=== PATIENT | female | born 1965 | race Hispanic/Latino ===

== ENCOUNTER → 2017-10-28 | Outpatient (CLI) | payer BC | END | disposition home or self-care (01) | LOC: RAH 13:35 | PROVIDERS: ATTEND Obstetrics & Gynecology | DX: Z12.31 Encounter for screening mammogram for malignant neoplasm of breast (principal) | CPT/HCPCS: 77067 ==

== ENCOUNTER 2017-12-24 07:13 | Inpatient (IN) | payer BC ==
[~2017-12-24] VITALS: Ht 160 cm; Wt 108.9 kg
[2017-12-24] MEDS ORDERED: ONDANSETRON HCL MDV 20ML 2 MG/ML VIAL ONE (07:54)
[2017-12-24] MEDS ORDERED: SODIUM CHLORIDE 0.9% 1000ML 1,000 ML IV ONE (07:54)
[2017-12-24] MEDS ORDERED: MORPHINE SULFATE 4 MG/1ML SYG ONE ×2 (07:54→09:54)
[2017-12-24 08:01] LABS: BASOPHILS % (AUTO) 0.4 % (0.0-5.0); EOSINOPHILS % (AUTO) 0.9 % (0.0-8.0); LYMPHOCYTES % (AUTO) 14.9 % (21.0-51.0); MEAN CORPUSCULAR HEMOGLOBIN 32.6 pg (27.0-33.0); MEAN CORPUSCULAR HGB CONC 35.3 g/dL (32.0-36.0); MEAN CORPUSCULAR VOLUME 92.4 fL (79-99); MONOCYTES % (AUTO) 5.4 % (3.0-13.0); NEUTROPHILS % (AUTO) 78.4 % (40.0-77.0); PLATELET COUNT (AUTO) 229 K/uL (130-400); RED BLOOD CELL COUNT(AUTO) 4.22 MIL/uL (4.00-5.50); RED CELL DISTRIBUTION WIDTH 13.2 % (11.0-15.5); WHITE BLOOD COUNT (AUTO) 8.9 K/uL (4.8-10.8)
[2017-12-24 08:10] LABS: CREATININE 0.7 mg/dL (0.5-1.5); POTASSIUM 4.2 mmol/L (3.5-5.1)
[2017-12-24 08:16] LABS: ALBUMIN 3.5 g/dL (3.5-5.0); BILIRUBIN,TOTAL 0.4 mg/dL (0.2-1.0); TOTAL PROTEIN, SERUM 7.3 g/dL (6.0-8.3)
[2017-12-24] MEDS ORDERED: KETOROLAC TROMETHAMINE 30MG/ML ONE (08:38)
[2017-12-24 10:03] LABS: APPEARANCE,URINE CLOUDY (CLEAR); BILIRUBIN,URINE NEGATIVE (NEGATIVE); COLOR,URINE YELLOW (YELLOW); GLUCOSE, URINE (UA) NEGATIVE (NEGATIVE); KETONES,URINE NEGATIVE (NEGATIVE); LEUKOCYTE ESTERASE ,URINE NEGATIVE (NEGATIVE); NITRATE,URINE NEGATIVE (NEGATIVE); OCCULT BLOOD,URINE NEGATIVE (NEGATIVE); PROTEIN,URINE NEGATIVE (NEGATIVE); UROBILINOGEN,URINE 0.2 mg/dL (0.2-1.0)
[2017-12-24 11:07] LABS: AMORPHOUS SEDIMENT,UR Many /LPF (None Seen); BACTERIA,URINE Few /HPF (None Seen); RBC,URINE 0-1 /HPF (0-1); SQUAMOUS EPITHELIAL CELL,UR Rare /LPF (0-2); WBC,URINE None Seen /HPF (0-1)
[2017-12-24] MEDS ORDERED: MEROPENEM 1 GM VIAL ONE ×2 (11:52→19:39)
[2017-12-24 12:19] VITALS: BP 154/77
[2017-12-24] MEDS: 1/2 NORMAL SALINE 1,000 ML IV SCH ×2 (14:23→20:23)
[2017-12-24] MEDS: HYDROMORPHONE HCL 0.5 MG/0.5 ML ML IVP PRN ×2 (14:24→18:17)
[2017-12-24] MEDS ORDERED: MEROPENEM 1 GM VIAL IVP SCH (15:00)
[2017-12-24 16:04] VITALS: BP 119/61
[2017-12-24] MEDS: ONDANSETRON HCL MDV 20ML 2 MG/ML VIAL IVP PRN (18:17)
[2017-12-24 19:39] VITALS: BP 136/71
[2017-12-24] MEDS: MEROPENEM 1 GM VIAL IVP SCH (20:21)
[2017-12-24 23:40] VITALS: BP 119/59
[2017-12-25] MEDS: MEROPENEM 1 GM VIAL IVP SCH ×3 (04:19→21:10)
[2017-12-25] MEDS: 1/2 NORMAL SALINE 1,000 ML IV SCH ×3 (04:20→21:11)
[2017-12-25 04:25] VITALS: BP 115/58
[2017-12-25 05:17] LABS: BASOPHILS % (AUTO) 0.4 % (0.0-5.0); EOSINOPHILS % (AUTO) 0.9 % (0.0-8.0); LYMPHOCYTES % (AUTO) 22.3 % (21.0-51.0); MEAN CORPUSCULAR HEMOGLOBIN 32.3 pg (27.0-33.0); MEAN CORPUSCULAR HGB CONC 34.6 g/dL (32.0-36.0); MEAN CORPUSCULAR VOLUME 93.4 fL (79-99); MONOCYTES % (AUTO) 7.8 % (3.0-13.0); NEUTROPHILS % (AUTO) 68.6 % (40.0-77.0); PLATELET COUNT (AUTO) 222 K/uL (130-400); RED BLOOD CELL COUNT(AUTO) 3.75 MIL/uL (4.00-5.50); RED CELL DISTRIBUTION WIDTH 12.9 % (11.0-15.5); WHITE BLOOD COUNT (AUTO) 9.3 K/uL (4.8-10.8)
[2017-12-25 05:29] LABS: ALBUMIN 2.7 g/dL (3.5-5.0); BILIRUBIN,TOTAL 0.5 mg/dL (0.2-1.0); CREATININE 0.8 mg/dL (0.5-1.5); POTASSIUM 3.3 mmol/L (3.5-5.1); TOTAL PROTEIN, SERUM 5.9 g/dL (6.0-8.3)
[2017-12-25] MEDS ORDERED: POTASSIUM CHLORIDE 20MEQ/100ML 100 ML IV PRN (07:00)
[2017-12-25] MEDS ORDERED: POTASSIUM CHLORIDE 10% ELIXIR 20 MEQ/15 ML UDCUP PO PRN (07:00)
[2017-12-25] MEDS ORDERED: LIDOCAINE HCL-MPF 1% 2ML VIAL IVP PRN (07:00)
[2017-12-25] MEDS: PANTOPRAZOLE SODIUM 40 MG TABLET.DR PO SCH (09:17)
[2017-12-25] MEDS: ACETAMINOPHEN 325 MG TAB PO PRN ×2 (09:17→21:27)
[2017-12-25] MEDS: POTASSIUM CHLORIDE 20 MEQ ERTAB PO PRN ×3 (09:18→16:45)
[2017-12-25 11:43] VITALS: BP 121/57
[2017-12-25 16:04] VITALS: BP 137/70
[2017-12-25 19:45] VITALS: BP 139/69
[2017-12-25 23:45] VITALS: BP 146/79
[2017-12-26] VITALS (25 sets, daily range): BP systolic 116–149; BP diastolic 55–83
[2017-12-26] MEDS: MEROPENEM 1 GM VIAL IVP SCH ×3 (04:32→20:49)
[2017-12-26] MEDS: ACETAMINOPHEN 325 MG TAB PO PRN (04:32)
[2017-12-26] MEDS: 1/2 NORMAL SALINE 1,000 ML IV SCH ×3 (04:32→22:30)
[2017-12-26] MEDS: PANTOPRAZOLE SODIUM 40 MG TABLET.DR PO SCH (09:00)
[2017-12-26] MEDS ORDERED: LIDOCAINE HCL/EPINEPHRINE 50 ML VIAL IJ ONE (09:47)
[2017-12-26] MEDS ORDERED: BUPIVACAINE/PF 0.25% 30ML VIAL IJ ONE (09:47)
[2017-12-26] MEDS ORDERED: DEXAMETHASONE SOD PHOSPHATE 10MG/ML 1ML VIAL ONE (10:02)
[2017-12-26] MEDS ORDERED: GLYCOPYRROLATE 0.2 MG/ML 5 ML VIAL ONE (10:02)
[2017-12-26] MEDS ORDERED: MIDAZOLAM HCL 1 MG/ML 2ML VIAL ONE (10:02)
[2017-12-26] MEDS ORDERED: LIDOCAINE PF 2% 5ML ABBOJECT ONE (10:02)
[2017-12-26] MEDS ORDERED: SUCCINYLCHOLINE 200MG/10ML SYR ONE (10:02)
[2017-12-26] MEDS ORDERED: FENTANYL CITRATE PF 50 MCG/1 ML 2ML VIAL ONE ×2 (10:03→11:32)
[2017-12-26] MEDS ORDERED: PROPOFOL 10 MG/ML 20ML VIAL IV ONE (10:03)
[2017-12-26] MEDS ORDERED: EPHEDRINE SULFATE 50 MG/ML AMPULE ONE (10:43)
[2017-12-26] MEDS ORDERED: KETOROLAC TROMETHAMINE 30MG/ML ONE (11:58)
[2017-12-26] MEDS ORDERED: MEPERIDINE-PF 25 MG/ML SYG ONE (11:58)
[2017-12-26] MEDS: OXYCODONE/ACETAMIN 5/325MG TAB PO PRN (20:56)
[2017-12-26] MEDS: ONDANSETRON HCL MDV 20ML 2 MG/ML VIAL IVP PRN (23:11)
[2017-12-27 00:37] VITALS: BP 142/84
[2017-12-27] MEDS: 1/2 NORMAL SALINE 1,000 ML IV SCH (01:40)
[2017-12-27] MEDS: MEROPENEM 1 GM VIAL IVP SCH ×2 (03:24→13:08)
[2017-12-27 03:51] VITALS: BP 137/72
[2017-12-27 07:30] VITALS: BP 137/65
[2017-12-27] MEDS: PANTOPRAZOLE SODIUM 40 MG TABLET.DR PO SCH (08:58)
[2017-12-27] MEDS: OXYCODONE/ACETAMIN 5/325MG TAB PO PRN (09:07)
[2017-12-27 11:00] VITALS: BP 132/58
[2017-12-27 16:00] VITALS: BP 128/68
== END 2017-12-27 18:10 | disposition home or self-care (01) | DRG 418 ==
LOC: EDH 07:13 → EDHIP 10:52 → 4BH 11:35
PROVIDERS: ADMIT Internal Medicine; ATTEND Internal Medicine
PROC: 0FT44ZZ Resection of Gallbladder, Percutaneous Endoscopic Approach (ICD-10-PCS; principal; 2017-12-26 10:23)
DX: K80.00 Calculus of gallbladder with acute cholecystitis without obstruction (principal); Z68.41 Body mass index [BMI] 40.0-44.9, adult; E66.01 Morbid (severe) obesity due to excess calories; E87.6 Hypokalemia; Z83.3 Family history of diabetes mellitus; Z82.49 Family history of ischemic heart disease and other diseases of the circulatory system; Z82.5 Family history of asthma and other chronic lower respiratory diseases
CPT/HCPCS: 36415; 76705; 80053; 81001; 83690; 84132; 85025; 88304; A4218; J0330; J1100; J1170; J1885; J2001; J2175; J2185; J2250; J2270; J2704; J3010; J3490; J7030

== ENCOUNTER 2019-03-10 05:46 | Inpatient (IN) | payer BC | END 2019-03-12 12:02 | disposition home or self-care (01) | LOC: EDH 05:46 → EDHIP 07:06 → 3DH 09:20 ==

== ENCOUNTER → 2019-03-28 | Outpatient (CLI) | payer BC ==
[~2019-03-28] MED LIST: ATOR10 PO; CQ10 PO; LEVO500T2 PO; LOPE-162 PO; LORA10TA60 PO; METR500T PO; TRIA10.8 NS
== END | disposition home or self-care (01) ==
LOC: RAH 15:20
PROVIDERS: ATTEND Obstetrics & Gynecology
DX: Z12.31 Encounter for screening mammogram for malignant neoplasm of breast (principal)
CPT/HCPCS: 77067

== ENCOUNTER → 2021-01-17 | Outpatient (CLI) | payer BC ==
[~2021-01-17] MED LIST changes: -LOPE-162 PO; +LOPE-198 PO
== END | disposition home or self-care (01) ==
LOC: RAH 15:23
PROVIDERS: ATTEND Family Medicine
DX: Z12.31 Encounter for screening mammogram for malignant neoplasm of breast (principal)
CPT/HCPCS: 77067

== ENCOUNTER → 2023-10-21 | Outpatient (CLI) | payer OTHER | END | disposition home or self-care (01) | LOC: RAH 10:29 | PROVIDERS: ATTEND Internal Medicine | DX: Z12.31 Encounter for screening mammogram for malignant neoplasm of breast (principal) | CPT/HCPCS: 77067 ==